=== PATIENT | male | born 1955 | race Caucasian/White ===

== ENCOUNTER 2022-04-30 06:43 | Day surgery (SDC) | payer BC ==
[2022-04-30] MEDS ORDERED: Lactated Ringers 1,000 ML IV SCH (07:15)
[2022-04-30] MEDS ORDERED: Midazolam 1 MG/ML 2 ML SDV ONE (07:27)
[2022-04-30] MEDS ORDERED: fentaNYL 50 MCG/ML SDV ONE (07:27)
[2022-04-30] MEDS ORDERED: Propofol 200 MG/20 ML SDV ONE ×2 (07:28→08:22)
[2022-04-30 09:19] VITALS: BP 133/102; PULSE 83
== END 2022-04-30 09:33 | disposition home or self-care (01) ==
LOC: JP.SDS 06:43
PROVIDERS: ATTEND Family Medicine
DX: D12.0 Benign neoplasm of cecum (principal); D12.5 Benign neoplasm of sigmoid colon; I10 Essential (primary) hypertension; E78.5 Hyperlipidemia, unspecified; Z79.899 Other long term (current) drug therapy
CPT/HCPCS: 45380; 88305; J2250; J2704; J3010; J7120